=== PATIENT | female | born 1970 | race Caucasian/White ===

== ENCOUNTER 2020-10-06 09:06 | Outpatient (REF) | payer BC, SELFPAY ==
--- NOTE | ~2020-10-06 | MM_ITS ---
EXAMINATION: MM SCREENING DIGITAL BREAST TOMOSYNTHESIS, BILATERAL CLINICAL INFORMATION: Screening. Asymptomatic. The lifetime risk of breast cancer based on the Tyrer-Cuzick Model is 11%. COMPARISON: Mammography: 10/22/2018, 07/16/2016, 12/18/2013 TECHNIQUE: Digital breast tomosynthesis is performed in both the craniocaudal and mediolateral oblique views along with computer-aided detection (CAD). Synthesized 2D images are generated from the tomosynthesis. FINDINGS: The breasts are heterogeneously dense, which may obscure small masses (ACR BI-RADS breast composition Category c). There are no significant masses, abnormal calcifications, or other abnormalities. The axilla and skin contours are unremarkable. No significant changes. MM/MM tomosynthesis screening BI IMPRESSION: No mammographic evidence of malignancy. ASSESSMENT: BI-RADS 1: Negative RECOMMENDATION: Routine annual mammography screening. This patient's information was entered into a reminder system with a target due date for their next mammogram.
== END 2020-10-06 09:07 | disposition home or self-care (01) ==
LOC: HO.MAMMO 09:06
PROVIDERS: PCP Internal Medicine; Visit Provider Advanced Practice Midwife
DX: Z12.31 Encounter for screening mammogram for malignant neoplasm of breast (principal)
CPT/HCPCS: 77063; 77067

== ENCOUNTER 2020-10-26 08:53 | Outpatient (REF) | payer BC, SELFPAY ==
[2020-10-28 22:46] LABS: HPV mRNA E6/E7 rflx Not Detected (Not Detected)
== END 2020-10-26 08:54 | disposition home or self-care (01) ==
LOC: HO.LAB 08:53
PROVIDERS: PCP Internal Medicine; Visit Provider Advanced Practice Midwife
DX: Z01.419 Encounter for gynecological examination (general) (routine) without abnormal findings (principal); Z78.0 Asymptomatic menopausal state
CPT/HCPCS: 87624; 88142

== ENCOUNTER 2023-02-21 12:54 | Outpatient (AMB) | payer BC, SELFPAY ==
--- NOTE | 2023-02-21 12:58 | A.OFFVIS_ITS ---
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 She is doing well with concerns. Started skipping menses this year. Attempting to eat a healthy diet with calcium and vitamin D and stays active with exercise. Currently sexually active. Denies any vaginal dryness or irritation. Last pap smear; 2020, due 2023. History of a LEEP. Last mammogram; 2020. Colonoscopy is UTD. Denies any family history of breast, ovarian or colon cancer. 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 Sexual orientation: Straight/Heterosexual Gender identity: Female Female Reproductive History Menstrual Date of last menstrual period: 02/10/23 Total pregnancies: 0 Date of last pap smear: 10/26/20 (neg pap and hpv) History of abnormal pap smear: Yes (10/17 leep cin2 09/29 asc-h 11/30 colpo yolanda 2 01/30 leep cin1) Date of Mammogram: 10/06/20 (Birad 1) Review of Systems Const All systems reviewed & are unremarkable except as noted in HPI and below Reports as per HPI Eyes Reports no additional complaints ENT Reports no additional complaints Card Reports no additional complaints Resp Reports no additional complaints GI Reports as per HPI and Reports no additional complaints Reports as per HPI Musc Reports no additional complaints Skin/Breast Reports as per HPI Neuro Reports no additional complaints Psych Reports no additional complaints Endo Reports no additional complaints Po/Lymph Reports no additional complaints Aller/Immun Reports no additional complaints Physical Exam Vital Signs: Last Vital Signs BP 120/80 02/21/23 12:59 BMI result Body Mass Index 27.5 Const General: cooperative, healthy appearing, no acute distress, well developed and alert Orientation/consciousness: patient oriented x3 HEENT Head: Yes normal to inspection Eyes General: appearance normal, both eyes and all related structures Neck Neck: Yes normal visual inspection Thyroid: Thyroid normal Chest Chest palpation & inspection: normal inspection of the chest and other (no puckering, dimpling, peau de orange, retraction, discharge, masses) Breast/axilla inspection: normal inspection of the breasts Breast/axilla palpation: normal palpation of the breasts Resp Effort & Inspection: normal respiratory effort GI Inspection: Yes normal to inspection Palpation (GI): Soft to palpation Rectal Exam - Female: deferred General: Yes bladder normal to palpation External Female Exam: normal external appearance and normal appearance of the urethra Speculum Exam - Vagina: normal appearance of the vagina, normal palpation and normal vaginal discharge Speculum Exam - Cervix: normal appearance of the cervix and normal palpation Bimanual exam- vagina & uterus: normal bimanual exam, normal palpation, uterine size normal, bladder normal to palpation, normal palpation and non-tender Bimanual Exam- Adnexa, other: no masses Skin General skin exam: no rashes or lesions noted Rashes: no rashes Neuro General: patient oriented x3 Cognition (Neuro): normal cognition Extrem General: Yes normal to inspection Psych Attitude: cooperative Thought process: Normal thought process present Assessment & Plan Assessment & Plan (1) Encounter for well woman exam with routine gynecological exam: Code(s): Z01.419 - Encounter for gynecological examination (general) (routine) without abnormal findings Plan: Discussed: Current recommendations for pap smears per ASCCP guidelines. Breast awareness, periodic self breast exams and yearly mammogram. Maintain a healthy lifestyle, well balanced diet including Calcium 1,200 mg and Vitamin D 600 IU daily, and routine exercise. Counseled re: perimenopause verses menopause changes. Monitor menstrual cycles, report any unscheduled bleeding, bleeding episodes <21 days apart or heavy/prolonged menstrual bleeding. Menopause occurs after a full 12 months of absent menses. Call the office for further evaluation if a positive result or abnormal bleeding pattern occurs. All of her questions and concerns were addressed to the best of my ability. RTO in 1 year for annual starbucks clerk exam. Orders: Orders MM tomosynthesis screening BI Today Z12.31 - Encounter for screening mammogram for malignant neoplasm of breast Coding Level of Care Code Est Pt Prev Care 40-64y(34792) Diagnoses Encounter for well woman exam with routine gynecological exam Z01.419
[2023-02-21 12:59] VITALS: BP 120/80; BMI 27.5
== END 2023-02-21 13:36 | disposition home or self-care (01) ==
PROVIDERS: PCP Internal Medicine; Visit Provider Advanced Practice Midwife
DX: Z01.419 Encounter for gynecological examination (general) (routine) without abnormal findings (principal)
CPT/HCPCS: 99396

== ENCOUNTER → 2023-02-21 12:54 | Outpatient (BNVA) | payer BC, SELFPAY | PROVIDERS: PCP Internal Medicine; Visit Provider Advanced Practice Midwife ==

== ENCOUNTER 2023-03-29 15:54 | Outpatient (REF) | payer BC, SELFPAY | END 2023-03-29 15:55 | disposition home or self-care (01) | LOC: HO.MAMMO 15:54 | PROVIDERS: PCP Internal Medicine; Visit Provider Advanced Practice Midwife | DX: Z12.31 Encounter for screening mammogram for malignant neoplasm of breast (principal) | CPT/HCPCS: 77063; 77067 ==

== ENCOUNTER → 2023-03-29 16:00 | Outpatient (BNV) | payer BC, SELFPAY | PROVIDERS: PCP Internal Medicine; Visit Provider Radiology Diagnostic Radiology | DX: Z12.31 Encounter for screening mammogram for malignant neoplasm of breast (principal) | CPT/HCPCS: 77063; 77067 ==

== ENCOUNTER 2024-02-27 14:32 | Outpatient (REF) | payer BC, SELFPAY ==
[2024-02-28 11:43] LABS: HPV 16,18/45 See PAP report
== END 2024-02-27 14:33 | disposition home or self-care (01) ==
LOC: HO.LNP 14:32
PROVIDERS: PCP Internal Medicine; Visit Provider Advanced Practice Midwife
DX: Z01.419 Encounter for gynecological examination (general) (routine) without abnormal findings (principal); N93.9 Abnormal uterine and vaginal bleeding, unspecified; Z87.42 Personal history of other diseases of the female genital tract
CPT/HCPCS: 87624; 88175

== ENCOUNTER 2024-02-27 14:32 | Outpatient (AMB) | payer BC, SELFPAY ==
--- NOTE | 2024-02-27 14:39 | A.OFFVIS_ITS ---
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 She is doing well with concerns: closely spaced bleeding episode this month. She reports an episode of postcoital bleeding. She has not gone over 12 months. Currently sexually active. Denies any vaginal dryness or irritation. Attempting to eat a healthy diet with calcium and vitamin D and stays active with exercise. Last pap smear; 2020-negative, history of LEEP in 2001. Last mammogram; 2023. Colonoscopy is UTD. Denies any family history of breast, ovarian or colon cancer. 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 Sexual orientation: Straight/Heterosexual Gender identity: Female Female Reproductive History Menstrual Date of last menstrual period: 02/23/24 Total pregnancies: 0 Date of last pap smear: 10/26/20 (neg pap and hpv) History of abnormal pap smear: Yes (see intake note) Date of Mammogram: 03/29/23 (Birad 1) Review of Systems Const All systems reviewed & are unremarkable except as noted in HPI and below Reports as per HPI Eyes Reports no additional complaints ENT Reports no additional complaints Card Reports no additional complaints Resp Reports no additional complaints GI Reports as per HPI and Reports no additional complaints Reports as per HPI Musc Reports no additional complaints Skin/Breast Reports as per HPI Neuro Reports no additional complaints Psych Reports no additional complaints Endo Reports no additional complaints Po/Lymph Reports no additional complaints Aller/Immun Reports no additional complaints Physical Exam Vital Signs: Last Vital Signs BP 120/76 02/27/24 14:41 BMI result Body Mass Index 27.6 Const General: cooperative, healthy appearing, no acute distress, well developed and alert Orientation/consciousness: patient oriented x3 HEENT Head: Yes normal to inspection Eyes General: appearance normal, both eyes and all related structures Neck Neck: Yes normal visual inspection Thyroid: Thyroid normal Chest Chest palpation & inspection: normal inspection of the chest and other (no puckering, dimpling, peau de orange, retraction, discharge, masses) Breast/axilla inspection: normal inspection of the breasts Breast/axilla palpation: normal palpation of the breasts Resp Effort & Inspection: normal respiratory effort GI Inspection: Yes normal to inspection Palpation (GI): Soft to palpation Rectal Exam - Female: deferred General: Yes bladder normal to palpation External Female Exam: normal external appearance and normal appearance of the urethra Speculum Exam - Vagina: normal appearance of the vagina, normal palpation, normal vaginal discharge and vaginal bleeding Speculum Exam - Cervix: normal appearance of the cervix and normal palpation Bimanual exam- vagina & uterus: normal bimanual exam, normal palpation, uterine size normal, bladder normal to palpation, normal palpation and non-tender Bimanual Exam- Adnexa, other: no masses OB/external & speculum: vaginal bleeding Skin General skin exam: no rashes or lesions noted Rashes: no rashes Neuro General: patient oriented x3 Cognition (Neuro): normal cognition Extrem General: Yes normal to inspection Psych Attitude: cooperative Thought process: Normal thought process present Assessment & Plan Assessment & Plan (1) Encounter for well woman exam with routine gynecological exam: Code(s): Z01.419 - Encounter for gynecological examination (general) (routine) without abnormal findings Category: Medical (2) History of abnormal cervical Pap smear: Code(s): Z87.42 - Personal history of other diseases of the female genital tract (3) Abnormal uterine bleeding (AUB): Code(s): N93.9 - Abnormal uterine and vaginal bleeding, unspecified Category: Medical Plan Discussed: Current recommendations for pap smears per ASCCP guidelines. Breast awareness, periodic self breast exams and yearly mammogram. Maintain a healthy lifestyle, well balanced diet including Calcium 1,200 mg and Vitamin D 600 IU daily, and routine exercise. Workup for AUB to include pelvic ultrasound, EMB, cultures, Pap obtained today. Anticipatory guidance for EMB procedure to include Advil 3 tablets with food 1 hour before her appointment. Hysteroscopy as option if unable to obtain sampling in office or unable to complete procedure. Plan FSH today. Patient verbalizes understanding and agrees to the plan of care. She was given opportunity to ask questions and all questions were answered to the best of my ability. RTO in 1 year for annual newborn photographer exam. This note is constructed using voice recognition software. While every effort has been made to ensure accuracy, return to vendor errors may have been included. Orders: Orders Follicle Stimulating Hormone Today N93.9 - Abnormal uterine and vaginal bleeding, unspecified CT NG by PCR Today N93.9 - Abnormal uterine and vaginal bleeding, unspecified US pelvic and transvaginal Today N93.9 - Abnormal uterine and vaginal bleeding, unspecified Bacterial Vaginosis Panel Today N93.9 - Abnormal uterine and vaginal bleeding, unspecified HPV High risk Today N93.9 - Abnormal uterine and vaginal bleeding, unspecified, Z01.419 - Encounter for gynecological examination (general) (routine) without abnormal findings Pap Smear Today Z01.419 - Encounter for gynecological examination (general) (routine) without abnormal findings Thyroid Stimulating Hormone Today N93.9 - Abnormal uterine and vaginal bleeding, unspecified Coding Level of Care Code Est Pt Prev Care 40-64y(31975) Diagnoses Encounter for well woman exam with routine gynecological exam Z01.419 History of abnormal cervical Pap smear Z87.42 Abnormal uterine bleeding (AUB) N93.9
[2024-02-27 14:41] VITALS: BP 120/76; BMI 27.6
== END 2024-02-27 15:50 | disposition home or self-care (01) ==
LOC: HO.HWS 14:32
PROVIDERS: PCP Internal Medicine; Visit Provider Advanced Practice Midwife
DX: Z01.419 Encounter for gynecological examination (general) (routine) without abnormal findings (principal); Z87.42 Personal history of other diseases of the female genital tract; N93.9 Abnormal uterine and vaginal bleeding, unspecified
CPT/HCPCS: 99396

== ENCOUNTER 2024-02-27 15:22 | Outpatient (REF) | payer BC, SELFPAY ==
[2024-02-28 13:15] LABS: Bacterial Vaginosis PCR NEGATIVE (Negative); Candida Group PCR DETECTED (Not Detect); Candida glab krusei PCR DETECTED (Not Detect); Trichomonas vaginalis PCR NOT DETECTED (Not Detect)
== END 2024-02-27 15:23 | disposition home or self-care (01) ==
LOC: HO.LAB 15:22
PROVIDERS: Visit Provider Advanced Practice Midwife
DX: N93.9 Abnormal uterine and vaginal bleeding, unspecified (principal)
CPT/HCPCS: 0352U

== ENCOUNTER 2024-02-27 15:58 | Outpatient (REF) | payer BC, SELFPAY ==
[2024-02-27 17:31] LABS: Thyroid Stimulating Hormone 2.53 uIU/mL (0.32-4.0)
[2024-02-28 11:24] LABS: Follicle Stimulating Hormone 83.1 mIU/mL
[2024-03-01 13:15] LABS: CT PCR NOT DETECTED (Not Detect.); NG PCR NOT DETECTED (Not Detect.)
== END 2024-02-27 15:59 | disposition home or self-care (01) ==
LOC: HO.LAB 15:58
PROVIDERS: PCP Internal Medicine; Visit Provider Advanced Practice Midwife
DX: Z01.419 Encounter for gynecological examination (general) (routine) without abnormal findings (principal); N93.9 Abnormal uterine and vaginal bleeding, unspecified
CPT/HCPCS: 83001; 84443; 87491; 87591

== ENCOUNTER 2024-03-03 16:00 | Outpatient (REF) | payer BC, SELFPAY ==
--- NOTE | ~2024-03-03 | US_ITS ---
EXAMINATION: US PELVIS CLINICAL INFORMATION: Abnormal uterine and vaginal bleeding COMPARISON: Pelvic ultrasound 10/22/2019 TECHNIQUE: Ultrasound of the pelvis is performed using both transabdominal and transvaginal transducers along with Doppler. Transvaginal imaging is performed due to inadequate visualization transabdominally. FINDINGS: Uterus: The uterus is anteverted and measures 7.6 x 3.1 x 3.6 cm. The double wall endometrial thickness is 6 mm. The uterus is smooth in contour and has normal myometrial echogenicity. No visible fibroid. Nabothian cysts are present in the cervix Adnexa: Both ovaries are visualized. There is normal color flow to the adnexa. There is no ovarian torsion. There is no pelvic ascites or fluid collection. Right ovary measures 1.5 x 1.6 x 0.9 cm for a volume of 1.1 cc and appears unremarkable. Left ovary measures 2.8 x 1.9 x 2.4 cm for a volume of 6.6 cc and contains a 1.7 cm benign follicular cyst. US/US pelvic and transvaginal IMPRESSION: Unremarkable pelvic ultrasound. Electronically signed by: David Tran MD 03/04/2024 10:24 AM [facility]
== END 2024-03-03 16:01 | disposition home or self-care (01) ==
LOC: HO.US 16:00
PROVIDERS: PCP Internal Medicine; Visit Provider Advanced Practice Midwife
DX: N93.9 Abnormal uterine and vaginal bleeding, unspecified (principal)
CPT/HCPCS: 76830; 76856

== ENCOUNTER 2024-03-19 14:46 | Outpatient (AMB) | payer BC, SELFPAY ==
--- NOTE | 2024-03-19 14:49 | MHC.OFFVIS ---
Vital Signs 03/19/24 15:01 BP 122/84 Intake Visit Reasons: U/S follow up, EMB/ECC Irrigation Worker: Irrigation Worker Present (Chetna) Allergies No Known Allergies Allergy (Verified 03/19/24 14:56) Is last menstrual period known: Yes Last menstrual period: 03/16/24 HPI Comments Details: Patient is here today for an ultrasound and lab follow up. History of amenorrhea times 10 months followed with onset of unscheduled bleeding. Labs 02/27/2024- FSH 83.1, TSH 2.53. Pap smear 03/06/2024 was negative x2. Currently taking Z-Maicol prescribed from her primary care. 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 Sexual orientation: Straight/Heterosexual Gender identity: Female Female Reproductive History Menstrual Date of last menstrual period: 03/16/24 Review of Systems Const All systems reviewed & are unremarkable except as noted in HPI and below Physical Exam Vital Signs: Last Vital Signs BP 122/84 03/19/24 15:01 Const General: cooperative, healthy appearing and no acute distress Orientation/consciousness: patient oriented x3 GI Inspection: Yes normal to inspection Palpation (GI): Soft to palpation and Other GI palpation findings present (Nontender) Rectal Exam - Female: visual inspection normal General: Yes bladder normal to palpation External Female Exam: normal appearance of the urethra Speculum Exam - Vagina: normal appearance of the vagina, normal palpation and abnormal vaginal discharge (Clumpy) white Speculum Exam - Cervix: normal appearance of the cervix and normal palpation Bimanual exam- vagina & uterus: normal bimanual exam, normal palpation, uterine size normal, bladder normal to palpation, normal palpation, uterine shape normal and non-tender Bimanual Exam- Adnexa, other: normal adnexae Neuro General: patient oriented x3 Office Procedures Endometrial Biopsy Details: The patient is here today for an endometrial biopsy due to AUB to rule out any pathology including atypical, hyperplasia or cancer cells of the uterus. She was counseled regarding anticipatory guidance for the procedure including the risks for pain, infection, bleeding, perforation, potential injury to the tissues may include the cervix, uterus, tubes, bladder and bowels. These injuries may include further treatment and evaluation including surgery, blood transfusions, antibiotics, hospitalizations and anesthesia. Permanent injury and scarring can occur. She was consented for the procedure, and the consent forms were signed. She is agreeable to have the procedure today. All questions were answered. Endometrial Biopsy Procedure: The patient was placed in the dorsal lithotomy position and a sterile speculum inserted. Using aseptic technique for the procedure. The cervix was cleansed with Betadine x 3 swabs. A single toothed tenaculum was placed on the cervix for stabilization and the uterus was sounded to 6.5 cm with a 4mm pipelle, and tissue sample obtained. Minimal bleeding was observed. The tissue sample was placed in formalin in a patient labeled container by staff assisting and sent to the pathology department for processing and interpretation. The patient tolerate the procedure well and was in good condition when leaving the department. Endometrial Biopsy Post Procedure Care: Nothing in the vagina including: tampons, douching or intimacy until all the bleeding has subsided. There may be some post procedure bleeding for several days, this bleeding is usually light and may turn to a light brown or pink color. Mild cramps may occurs. Nothing in the vaginal including: tampons, douching, or intimacy until all the bleeding has subsided. You may take an over the counter mild analgesic such as Tylenol or Advil (if no allergies) per the manufactures recommendation on dosing, frequency, and follow the directions completely. Call the office if any: fever (over 100.4), flu like symptoms, abdominal pain (worse than cramping), foul smelling, infected appearing vaginal discharge, or heavy bleeding. If indicated: Use condoms to prevent and STI's, and only after the bleeding has stopped completely. Return to the office in 2 weeks for results and plan of care. This note is constructed using voice recognition software. While every effort has been made to ensure accuracy, supervisor motorcycle repair shop errors may have been included. [id number] Biopsy Results AMB Test Urine AMB Test Urine Negative Last Edit by ANNALISE Hemphill on 03/19/24 16:02 Results Reviewed Results Reviewed: Laboratory Last Values Tst Clinic Negative 03/19/24 16:[address] [address] Ultrasound Report Signed Patient: Sydney Carrion MR#: [id number] : 1970 Acct:[id number] Age/Sex: 53 / F ADM Date: 03/03/24 Loc: HO.US Attending Dr: Karyn Monaco CNM Ordering Physician: Karyn Monaco CNM Date of Service: 03/03/24 Procedure(s): US pelvic and transvaginal Accession Number(s): [id number] cc: Karyn Monaco CNM; Leroy Billings~ EXAMINATION: US PELVIS CLINICAL INFORMATION: Abnormal uterine and vaginal bleeding COMPARISON: Pelvic ultrasound 10/22/2019 TECHNIQUE: Ultrasound of the pelvis is performed using both transabdominal and transvaginal transducers along with Doppler. Transvaginal imaging is performed due to inadequate visualization transabdominally. FINDINGS: Uterus: The uterus is anteverted and measures 7.6 x 3.1 x 3.6 cm. The double wall endometrial thickness is 6 mm. The uterus is smooth in contour and has normal myometrial echogenicity. No visible fibroid. Nabothian cysts are present in the cervix Adnexa: Both ovaries are visualized. There is normal color flow to the adnexa. There is no ovarian torsion. There is no pelvic ascites or fluid collection. Right ovary measures 1.5 x 1.6 x 0.9 cm for a volume of 1.1 cc and appears unremarkable. Left ovary measures 2.8 x 1.9 x 2.4 cm for a volume of 6.6 cc and contains a 1.7 cm benign follicular cyst. US/US pelvic and transvaginal IMPRESSION: Unremarkable pelvic ultrasound. Electronically signed by: David Tran MD 03/04/2024 10:24 AM [facility] Dictated By: David Tran MD Signed By: <Electronically signed by David Tran MD in OV> 03/04/24 1024 DD/ 1612 TD/TT: 03/03/24 1633 Colors Custodian: ZEKE Assessment & Plan Assessment & Plan (1) Encounter to discuss test results: Code(s): Z71.2 - Person consulting for explanation of examination or test findings (2) Postmenopausal bleeding: Code(s): N95.0 - Postmenopausal bleeding (3) Thickened endometrium: Code(s): R93.89 - Abnormal findings on diagnostic imaging of other specified body structures (4) Vaginal yeast infection: Code(s): B37.31 - Acute candidiasis of vulva and vagina Plan Discussed: Ultrasound findings-endometrial lining 6 mm. See EMB procedure. Await EMB results for plan of care, follow up in 2 weeks for results. Perimenopause versus menopause diagnosis. Lab results. Rx sent in for yeast symptoms today. Encouraged the use of probiotics and yogurt. The patient expressed understanding and agreement with the plan of care. All of her questions and concerns were addressed to the best of my ability. This note is constructed using voice recognition software. While every effort has been made to ensure accuracy, supervisor motorcycle repair shop errors may have been included. Orders: Orders Surgical Today N93.9 - Abnormal uterine and vaginal bleeding, unspecified AMB HCG Urine Test Today N93.9 - Abnormal uterine and vaginal bleeding, unspecified Coding Level of Care Code Procedure Only Diagnoses Encounter to discuss test results Z71.2 Postmenopausal bleeding N95.0 Thickened endometrium R93.89 Vaginal yeast infection B37.31 CPT Codes Endometrial Biopsy - CPT: 64485-[id number] Biopsy ([id number]) Comment See notes for additional diagnoses and documentation
[2024-03-19 15:01] VITALS: BP 122/84
== END 2024-03-19 16:00 | disposition home or self-care (01) ==
PROVIDERS: PCP Internal Medicine; Visit Provider Advanced Practice Midwife
DX: N93.9 Abnormal uterine and vaginal bleeding, unspecified (principal); Z32.02 Encounter for pregnancy test, result negative
CPT/HCPCS: 58100

== ENCOUNTER 2024-03-19 14:47 | Outpatient (REF) | payer BC, SELFPAY | END 2024-03-19 14:48 | disposition home or self-care (01) | LOC: HO.LNP 14:47 | PROVIDERS: PCP Internal Medicine; Visit Provider Advanced Practice Midwife | DX: N93.9 Abnormal uterine and vaginal bleeding, unspecified (principal) | CPT/HCPCS: 58100; 81025; 88305 ==

== ENCOUNTER 2024-05-14 15:30 | Outpatient (AMB) | payer BC, SELFPAY ==
--- NOTE | 2024-05-14 15:30 | A.OFFVIS_ITS ---
Intake Visit Reasons: EMB Results Intake Note: cell #[phone] [employer]her Dietary Service Supervisor: [employer]her Dietary Service Supervisor Present Allergies No Known Allergies Allergy (Verified 03/19/24 14:56) Is last menstrual period known: Yes HPI Comments Details: Tele Health Visit Total time I personally spent on visit and management today: 21 minutes. Time spent included review of pertinent office notes in the electronic health record; review of laboratory and imaging results; review of personal family medical history; discussing diagnosis and plan of care with the patient; documenting the encounter in the EMR. Patient presents to discuss: Endometrial biopsy results. History of amenorrhea for 10 months follow up by unscheduled bleeding pattern. FSH on 02/27/2024 was 83.1. 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 Sexual orientation: Straight/Heterosexual Gender identity: Female Review of Systems Const All systems reviewed & are unremarkable except as noted in HPI and below Endo Reports no additional complaints Physical Exam Const General: cooperative, healthy appearing and no acute distress Psych Appearance: well kempt Attitude: cooperative Thought process: Normal thought process present Telehealth Telehealth Telehealth Platform: 2can Location of provider rendering services: practice address Location of patient: other Patient Identification confirmed using: Name, : Yes Telehealth method: video Patient verbally consented to treatment: Yes Patient verbally consented to billing insurance company: Yes Patient informed of any privacy concerns related to visit: Yes Results Reviewed Results Reviewed: Surgical Pathology S25-28 Name: Sydney Carrion Age/Sex: 53/F Attending: Karyn Monaco CNM : 1970 Submitted by: Karyn Monaco CNM Copies to: Leroy Billings MR #: [id number] Status: DEP REF Collected: 03/19/24 Location: [facility] Received: 03/20/24 Diagnosis Endometrium, biopsy: Benign weakly proliferative endometrium with chronic endometritis and breakdown; no atypia or carcinoma. Clinical History AUB Microscopic Description Microscopic sections reviewed. Material Received Endometrial biopsy Gross Description Received in formalin labeled ?endometrial biopsy? are fragments of pink-ghotra and red-ghotra soft tissue mixed with mucus and clotted blood forming an aggregate measuring 1.0 x 1.0 x 0.2 cm which is wrapped in lens paper and entirely submitted for microscopic examination, multiple pieces in cassette [facility] Copies To Karyn Monaco CNM [facility] [address] [place] [address] [place] [id number] Leroy Billings [address] [place], [place] [id number] NOTE: Unless otherwise stated, all tissue is formalin-fixed and paraffin-emb edded. Some or all of the immunohistochemical tests reported herein may have been developed and their performance characteristics determined by [facility]. They have not been cleared or approved by the U.S. Food and Drug Administration (FDA). However, the FDA has determined that such clearance or approval is not necessary. This laboratory is certified under the Clinical Laboratory Improvement Amendments of 1988 (CLIA) as qualified to perform high complexity clinical laboratory testing. Patient: Sydney Carrion Age/Sex: 53/F MR#: [id number] Page 1 of 2 Surgical Pathology S25-28 Electronically Signed By: Milka Shrestha 03/23/24 [id number] Patient: Sydney Carrion Age/Sex: 53/F MR#: [id number] Page 2 of 2 Assessment & Plan Assessment & Plan (1) Thickened endometrium: Code(s): R93.89 - Abnormal findings on diagnostic imaging of other specified body structures Category: Medical (2) Postmenopausal bleeding: Code(s): N95.0 - Postmenopausal bleeding Category: Medical (3) Encounter to discuss test results: Code(s): Z71.2 - Person consulting for explanation of examination or test findings (4) Thickened endometrium: Code(s): R93.89 - Abnormal findings on diagnostic imaging of other specified body structures Plan: FINDINGS: Uterus: The uterus is anteverted and measures 7.6 x 3.1 x 3.6 cm. The double wall endometrial thickness is 6 mm. The uterus is smooth in contour and has normal myometrial echogenicity. No visible fibroid. Nabothian cysts are present in the cervix Plan Discussed: Endometrial biopsy results with proliferative lining, recommended to follow with treatment-first choice is Mirena IUD for 5 years. Biopsies Q 3-6 months x1 year. Proliferative lining, hormonal imbalances. Use of intrauterine progesterone is to prevent hyperplasia, which can lead to the development of any abnormal atypical cells, precancer, cancer of the endometrium. Alternative progesterone options not the 1st choice, hysterectomy consideration-risks, patient prefers to have the Mirena IUD placed. Anticipatory guidance for preprocedure planning reviewed; advised to take 2 Tylenol or 3 Advil, per manufacture's recommendation, if no contraindications, 1 hour before the procedure with food and fluids. Coding Level of Care Code Tele Est Pt Level 3 (17798) Diagnoses Thickened endometrium R93.89 Postmenopausal bleeding N95.0 Encounter to discuss test results Z71.2
== END 2024-05-14 16:19 | disposition home or self-care (01) ==
LOC: HO.HWS 15:30
PROVIDERS: PCP Internal Medicine; Visit Provider Advanced Practice Midwife
DX: R93.89 Abnormal findings on diagnostic imaging of other specified body structures (principal); N95.0 Postmenopausal bleeding; Z71.2 Person consulting for explanation of examination or test findings
CPT/HCPCS: 99213

== ENCOUNTER → 2024-05-14 15:30 | Outpatient (BNVA) | payer BC, SELFPAY | PROVIDERS: PCP Internal Medicine; Visit Provider Advanced Practice Midwife ==

== ENCOUNTER 2024-07-09 09:09 | Outpatient (REF) | payer BC, SELFPAY ==
[2024-07-10 05:24] LABS: Follicle Stimulating Hormone 88.1 mIU/mL; Lutenizing Hormone 45.1 mIU/mL
== END 2024-07-09 09:10 | disposition home or self-care (01) ==
LOC: HO.LAB 09:09
PROVIDERS: PCP Internal Medicine; Visit Provider Advanced Practice Midwife
DX: N91.2 Amenorrhea, unspecified (principal); Z32.02 Encounter for pregnancy test, result negative
CPT/HCPCS: 36415; 81025; 83001; 83002

== ENCOUNTER 2024-07-09 09:09 | Outpatient (AMB) | payer BC, SELFPAY ==
[2024-07-09 09:17] VITALS: BP 122/80; BMI 26.9
--- NOTE | 2024-07-09 09:17 | A.OFFVIS_ITS ---
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 History of LMP in March, over the last year she has skipped a cycle for up to 10 months. Previous biopsy was proliferative, and FSH was 83.1. 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 Sexual orientation: Straight/Heterosexual Gender identity: Female Review of Systems Const All systems reviewed & are unremarkable except as noted in HPI and below Endo Reports no additional complaints Physical Exam Vital Signs: Last Vital Signs BP 122/80 07/09/24 09:17 BMI result Body Mass Index 26.9 Const General: cooperative, healthy appearing and no acute distress Psych Appearance: well kempt Attitude: cooperative Thought process: Normal thought process present Results AMB Test Urine AMB Test Urine Negative Last Edit by ANNALISE Hemphill on 07/09/24 09:29 Results Reviewed Results Reviewed: Laboratory Last Values [facility] Negative 07/09/24 09:29 Assessment & Plan Assessment & Plan (1) Amenorrhea: Code(s): N91.2 - Amenorrhea, unspecified Category: Medical Plan Reviewed reason for the IUD insertion, she's reluctant to have the IUD, if confirmed menopausal protective for the lining in prevention of endometrial cancer. If perimenopausal would need to wait 12 months to confirm diagnosis. Hormone levels fluctuate during the perimenopausal timeframe. Menopause verses perimenopause. Menopause is definitive of 1 year of no menses or 12 months in succession. Report any abnormal uterine bleeding in example prolonged episodes, or short intervals less than 24 days. Monitor menstrual cycles, report any unscheduled bleeding, bleeding episodes <24 days apart or heavy/prolonged menstrual bleeding. Call the office for a follow up for any concerns. Repeat blood work. Follow up pending labs. The patient expressed understanding and agreement with the plan of care. All of her questions and concerns were addressed to the best of my ability. This note is constructed using voice recognition software. While every effort has been made to ensure accuracy, computerized mill mill recorder errors may have been included. Orders: Orders AMB HCG Urine Test Today Z32.02 - Encounter for test, result negative Lutenizing Hormone Today N91.2 - Amenorrhea, unspecified Follicle Stimulating Hormone Today N91.2 - Amenorrhea, unspecified Coding Level of Care Code Est Pt Level 3 (21641) Diagnoses Amenorrhea N91.2
== END 2024-07-09 09:43 | disposition home or self-care (01) ==
LOC: HO.HWS 09:09
PROVIDERS: PCP Internal Medicine; Visit Provider Advanced Practice Midwife
DX: Z32.02 Encounter for pregnancy test, result negative (principal); N91.2 Amenorrhea, unspecified
CPT/HCPCS: 99213

== ENCOUNTER 2024-07-15 15:29 | Outpatient (AMB) | payer BC, SELFPAY ==
--- NOTE | 2024-07-15 15:29 | MHC.OFFVIS ---
Intake Visit Reasons: lab results Intake Note: cell #[phone] Allergies No Known Allergies Allergy (Verified 07/09/24 09:17) HPI Comments Details: Tele Health Visit Total time I personally spent on visit and management today: 17 minutes. Time spent included review of pertinent office notes in the electronic health record; review of laboratory and imaging results; review of personal family medical history; discussing diagnosis and plan of care with the patient; documenting the encounter in the EMR. Patient presents to discuss: Lab results. FSH-88.1, LH 45.1. 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 Sexual orientation: Straight/Heterosexual Gender identity: Female Telehealth Telehealth Telehealth Platform: Profitect Location of provider rendering services: practice address Location of patient: address on file Patient Identification confirmed using: Name, : Yes Telehealth method: video Patient verbally consented to treatment: Yes Patient verbally consented to billing insurance company: Yes Patient informed of any privacy concerns related to visit: Yes Assessment & Plan Assessment & Plan (1) Thickened endometrium: Code(s): R93.89 - Abnormal findings on diagnostic imaging of other specified body structures Category: Medical Plan Discussed: Bloodwork indicates postmenopausal status, history of postmenopausal bleeding, thickened endometrial lining. Endometrial biopsy proliferative, no atypia. Plan a Mirena IUD. Discuss purpose to prevent endometrial carcinoma development with estrogen dominance. Preprocedure planning including something to eat and drink and take 3 Advil 1 hour before her insertion time. The patient expressed understanding and agreement with the plan of care. All of her questions and concerns were addressed to the best of my ability. This note is constructed using voice recognition software. While every effort has been made to ensure accuracy, business improvement manager errors may have been included. Coding Level of Care Code Tele Est Pt Level 3 (14098) Diagnoses Thickened endometrium R93.89
== END 2024-07-15 17:39 | disposition home or self-care (01) ==
LOC: HO.HWS 15:29
PROVIDERS: PCP Internal Medicine; Visit Provider Advanced Practice Midwife
DX: R93.89 Abnormal findings on diagnostic imaging of other specified body structures (principal)
CPT/HCPCS: 99213

== ENCOUNTER 2024-09-15 13:38 | Outpatient (REF) | payer BC, SELFPAY ==
--- NOTE | ~2024-09-15 | MM_ITS ---
EXAMINATION: MM SCREENING DIGITAL BREAST TOMOSYNTHESIS, BILATERAL CLINICAL INFORMATION: Screening. Asymptomatic. COMPARISON: Mammography: Comparison is made with available priors TECHNIQUE: Digital breast mammography with tomosynthesis is performed in both the craniocaudal and mediolateral oblique views along with computer-aided detection (CAD). FINDINGS: The breasts are heterogeneously dense, which may obscure small masses (ACR BI-RADS breast composition Category c). There are no significant masses, abnormal calcifications, or other abnormalities. MM/MM tomosynthesis screening BI IMPRESSION: No mammographic evidence of malignancy. ASSESSMENT: BI-RADS BI-RADS 1 - Negative RECOMMENDATION: Routine annual mammography screening. 1 year F/U This examination should not preclude the clinical evaluation of a suspicious palpable abnormality. This patient's information was entered into a reminder system with a target due date for their next mammogram. Electronically signed by: Shannan Black DO 09/27/2024 09:04 PM EDT
== END 2024-09-15 13:39 | disposition home or self-care (01) ==
LOC: HO.MAMMO 13:38
PROVIDERS: PCP Internal Medicine; Visit Provider Internal Medicine
DX: Z12.31 Encounter for screening mammogram for malignant neoplasm of breast (principal)
CPT/HCPCS: 77063; 77067

== ENCOUNTER → 2024-09-15 13:45 | Outpatient (BNV) | payer BC, SELFPAY | PROVIDERS: PCP Internal Medicine; Visit Provider Internal Medicine | DX: Z12.31 Encounter for screening mammogram for malignant neoplasm of breast (principal) | CPT/HCPCS: 77063; 77067 ==